=== PATIENT | female | born 1970 | race Caucasian/White ===

== ENCOUNTER → 2016-05-25 | Outpatient (CLI) | payer OTHER ==
[~2016-05-25] MED LIST: NOHOMEMEDS; Protonix PO; Reglan PO; ZOFRAN4 MG PO
== END | disposition home or self-care (01) ==
LOC: CDC 09:00
DX: R94.31 Abnormal electrocardiogram [ECG] [EKG] (principal)
CPT/HCPCS: 93000

== ENCOUNTER 2016-06-26 05:34 | Day surgery (SDC) | payer OTHER ==
[~2016-06-26] VITALS: Ht 167.6 cm; Wt 118.8 kg
[~2016-06-26 05:34] MED LIST changes: +HYDROCHLOROTHIA25 MG PO; +PROZAC20 MG PO; +WELLBUTRIN XL300 MG PO
[2016-06-26 06:14] VITALS: BP 123/80
[2016-06-26] MEDS ORDERED: NORCO 5/3251 TABLET PO (10:26)
[2016-06-26] MEDS ORDERED: MOTRIN800 MG PO (10:26)
[2016-06-26 13:00] VITALS: BP 113/70
[2016-06-26 13:55] VITALS: BP 107/52
[2016-06-26 15:57] VITALS: BP 130/63
[2016-06-26 16:42] VITALS: BP 140/87
== END 2016-06-26 16:45 | disposition home or self-care (01) ==
LOC: SDC 05:34
DX: N93.9 Abnormal uterine and vaginal bleeding, unspecified (principal); N94.6 Dysmenorrhea, unspecified; N80.0 Endometriosis of uterus; D25.1 Intramural leiomyoma of uterus; N83.8 Other noninflammatory disorders of ovary, fallopian tube and broad ligament; E66.9 Obesity, unspecified; Z87.891 Personal history of nicotine dependence; Z68.41 Body mass index [BMI] 40.0-44.9, adult; Z80.3 Family history of malignant neoplasm of breast; Z81.1 Family history of alcohol abuse and dependence
CPT/HCPCS: 88307; J0330; J0690; J1100; J1170; J1885; J2250; J2405; J2710; J3010

== ENCOUNTER 2017-06-20 13:17 | Emergency (ER) | payer OTHER ==
[~2017-06-20] VITALS: Ht 170.2 cm; Wt 127.0 kg
[~2017-06-20 13:17] MED LIST changes: +MOTRIN800 MG PO; +NORCO 5/3251 TABLET PO
[2017-06-20 13:48] LABS: HEMATOCRIT 43.4 % (36.0-46.0); HEMOGLOBIN 15.5 G/DL (11.9-15.5); MCH 30.2 PG (29.0-34.0); MCHC 35.7 G/DL (30.0-36.0); MCV 84.4 FL (83-99); PLATELET COUNT 324 K/uL (156-360); RBC DIS.WIDTH-CV 13.2 % (11.8-14.6); RBC DIS.WIDTH-SD 40.5 % (39-53); RED BLOOD COUNT 5.14 M/uL (3.80-5.20); WHITE BLOOD COUNT 12.3 K/uL (4.1-10.2)
[2017-06-20 13:59] LABS: CHLORIDE 101 mEq/L (99-109); POTASSIUM 3.1 mEq/L (3.7-5.4); SODIUM 140 mEq/L (136-147)
[2017-06-20 14:01] LABS: GLUCOSE 137 mg/dL (70-99)
[2017-06-20 14:05] LABS: CREATININE 0.9 mg/dL (0.6-1.3); GFR ESTIMATE (CALCULATED) > 59 mL/min/
[2017-06-20 14:06] LABS: UREA NITROGEN (BUN) 13 mg/dL (9-23)
[2017-06-20 14:10] LABS: TROP-I INTERPRETATION NEGATIVE; TROPONIN-I < 0.01 ng/mL (0.0-0.30)
[2017-06-20 17:02] LABS: TROP-I INTERPRETATION NEGATIVE; TROPONIN-I < 0.01 ng/mL (0.0-0.30)
[2017-06-20 18:24] VITALS: BP 123/73
== END 2017-06-20 18:25 | disposition home or self-care (01) ==
LOC: EME 13:17
PROVIDERS: Nurse Practitioner Family
DX: R07.89 Other chest pain (principal); E87.6 Hypokalemia; I49.3 Ventricular premature depolarization; R94.31 Abnormal electrocardiogram [ECG] [EKG]; F31.9 Bipolar disorder, unspecified; F17.200 Nicotine dependence, unspecified, uncomplicated; Z86.73 Personal history of transient ischemic attack (TIA), and cerebral infarction without residual deficits; Z90.49 Acquired absence of other specified parts of digestive tract
CPT/HCPCS: 71046; 80048; 84484; 85027; 93005; 99281; 99285; J3480